=== PATIENT | male | born 1945 | race Two or more races ===

== ENCOUNTER → 2018-06-17 11:57 | Outpatient (CLI) | payer MEDICARE, SELFPAY ==
--- NOTE | 2018-06-17 | LES_PTH ---
PATIENT: WARREN RUDOLPH LOC: [facility]ECTOR U#:[id number] AGE/SX: 79/M ROOM: RE06/17/[address]: Dr. Christophe Luciano MD : [id number] BED: DIS: SPEC #: [id number] RECD: 06/17/18 11:48 STATUS: ARCADIO MICHAEL #: [id number] FRED: 06/17/18 00:[address]: Christophe Luciano DEPT: SURGICAL PATHOLOGY RECD BY: Franklin Crawford Tissues: Skin of eyelid, NOS Procedures: Surgery Specimen Level IV HEADER OPERATION: Right upper lid lesion removal PRE-OP DIAGNOSIS: Upper lid lesion with slow growth TISSUE SUBMITTED: Right upper lid lesion MICROSCOPIC DIAGNOSIS Right upper eyelid lesion, shave biopsy: Basal cell carcinoma, superficial, nodular and ulcerated. See comment. AM:dennis 06/18/18 COMMENT The lesion appears to have been completely excised in the planes examined. The lesion measures 5.1mm in greatest dimension. MICROSCOPIC DESCRIPTION Slides are reviewed. GROSS DESCRIPTION Received in fixative is one container labeled with the patient's name and designated right upper eyelid. The specimen consists of a discoid fragment of light rodriguez shaved skin measuring 5 mm in diameter and 0.2 cm in thickness. The specimen is inked, bisected and totally submitted in one cassette. / AM:dennis 06/17/18 TC:0 CPT: 61415
== END ==
PROVIDERS: Referring Provider Ophthalmology; Visit Provider Ophthalmology
DX: C44.1121 Basal cell carcinoma of skin of right upper eyelid, including canthus (principal)
CPT/HCPCS: 88305